=== PATIENT | female | born 1995 | race African-American/Black ===

== ENCOUNTER 2025-01-14 09:39 | Outpatient (CLI) | payer OTHER, SELFPAY ==
--- NOTE | ~2025-01-14 | MMUS_ITS ---
EXAMINATION: MM diagnostic favio BI w zainab, US breast RT limited INDICATION: 29-year old female; presents for evaluation of palpable lump in the lower inner right breast. COMPARISON: Baseline. TECHNIQUE: Digital breast tomosynthesis CC and MLO views of the BILATERAL breast and True lateral and spot compression of the RIGHT breast were obtained with computer-aided detection to assist in interpretation of the study. A radiopaque skin marker was placed over the area of RIGHT breast palpable lump. FINDINGS: The breasts are extremely dense, which lowers the sensitivity of mammography. There are no suspicious masses, calcifications, architectural distortion or any other abnormality in either breast. No suspicious mammographic abnormality correlates to the radiopaque skin marker. An asymmetry seen in the subareolar location in the left breast effaces on spot compression views compatible with superimposition of fibroglandular tissue. RIGHT BREAST ULTRASOUND FINDINGS: There is sonographic abnormality that correlates to the area of palpable lump identified by the patient. . IMPRESSION: 1. NO MAMMOGRAPHIC OR SONOGRAPHIC FINDING CORRELATES TO THE PALPABLE LUMP IN THE RIGHT BREAST. 2. NO MAMMOGRAPHIC EVIDENCE OF MALIGNANCY IN THE LEFT BREAST. RECOMMENDATION: CLINICAL MANAGEMENT OF PATIENT'S PALPABLE LUMP. BI-RADS 1, NEGATIVE Reviewed, dictated and finalized at location B. 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 NO MAMMOGRAPHIC OR SONOGRAPHIC FINDING CORRELATES TO THE PALPABLE LUMP IN TH E RIGHT BREAST. 2. NO MAMMOGRAPHIC EVIDENCE OF MALIGNANCY IN THE LEFT BREAST. RECOMMENDATION: CLINICAL MANAGEMENT OF PATIENT'S PALPABLE LUMP. BI-RADS 1, NEGATIVE
--- OUTSIDE RECORDS SUMMARY | 2025-01-14 11:12 | XMS_ITS | Data Portability ---
Author Organization [facility], ADMIN Address [address] [address] Assessment No assessment recorded. Plan of Treatment Reminders Order Date Submit Date Provider Last Modified By Organization Details Last Modified Time Details Appointments None recorded. Lab bacterial vaginosis and vaginitis rRNA panel, DNA probe, vaginal fluid 2022 023 [facility], [address] [place] [address], [id number], 3 14:09:47 cytology report, thin prep, smear or scraping, cervical or vaginal 2021 022 [facility], [address] [place] [address], [id number], 2 12:07:36 Referral None recorded. Procedures None recorded. Surgeries None recorded. Imaging None recorded. Medication Orders None recorded. Patient TargetsNo targets recorded. Patient Instructions Encounter Date Encounter Id Patient Instructions Last Modified By Organization Details Last Modified Time 09/08/2021 [id number] You may find the following electronic resources helpful. Contraception: https://www.[facility].org /womens-health/faqs/ -control Planning for : https://www.[facility].org /womens-health/faqs/ cogy-lgdvtp-jfmcuk-p regnancy-prepregnanc y-care Abnormal menstrual bleeding: https://www.[facility].org /womens-health/faqs/ jzpht-bluxjbxhq-mfzk ding STD screening and prevention: https://www.[facility].org /womens-health/faqs/ krs-xk-accfvnl-stis Not available 09/08/2021 13:35:19 Annual gynecolog ical exam performed. Exercise and well balanced diet encouraged. Multivitamin discussed. Reviewed screening for precancerous lesions of the cervix (Pap/HPV testing when appropriate). Discussed appropriate interval for screening and discussed role of HPV in cervical cancer. Monthly breast exams discussed. Counseling on methods of contraception provided. Discussed the use of combined hormonal contraception, including the risks and benefits of this contraceptive method. Discussed safe sex practices, barrier method, and emergency contraceptive options. Counseled regarding HPV vaccine. Advised avoidance of tobacco, alcohol, and drugs . Patient voiced understanding and all questions were addressed. Patient will come back in a year unless there are new symptoms or concerns. Not available 09/08/2021 13:35:26 11/12/2022 [id number] Cervical Cancer Screening: Women should begin having a Pap smear at age 21. Women aged 21-29 should be screened every 3 years. Women aged 30-65 should be screened every 3-5 years. Your doctor may stop performing pap smear screenings if you have had a hysterectomy or are age 65 or above, if you meet certain criteria: Three consecutive negative cytology results or two consecutive negative HPV results within the previous 10 years with the most recent test within the past 5 years. No history of a high-grade precancerous lesions (cervical intraepithelial neoplasia grade 2 or grade 3 or cervical cancer within the past 20 years). Screening for Sexually Transmitted Diseases: Chlamydia and Gonorrhea are two of the most common sexually transmitted diseases with 75% of Chlamydial and 68% of Gonococcal infections showing no symptoms. Women should be screened for Chlamydia and Gonorrhea that are age 25 and under or women over age 25 at increased or special risk. Women should be screened for HIV aged 13-64 or at increased risk. 84% of cases are attributed to heterosexual sex. Women at increased or special risk or requesting STI screening should be screened for Hepatitis B and C, Syphilis, Herpes, Trichomonas. Vaccination Recommendations for Ages 27-45: Screenings for vaccination status should be based on the CDC Adult Vaccine Schedule. Recommendations include seasonal flu vaccine, Hepatitis A&B, and the Varicella series for those who are unvaccinated and have no history of infection. Completion of the HPV vaccine can be considered if desired and you have not been previously vaccinated. All eligible women should receive full vaccination against COVID-19. If you are actively attempting , you should not receive live vaccines. Preconception Counseling: If you are of reproductive age who are actively planning or not preventing should have a visit to discuss their reproductive plan. The goals of this visit are to identify any risks or barriers to healthy outcomes and to receive education on possible options for health management to reduce any risks prior to becoming . Your provider will ask you about your health history in order to identify possible chronic medical conditions that should be optimized prior to for better outcomes and will make referrals if needed. Your provider will also review the medications that you are currently taking that may be harmful in and talk with you about any that may need to be stopped. Your provider will review your vaccination status with you to identify if there are any that may be recommended as well as discuss substance abuse and possible environmental exposures. Family history will be obtained to identify any potential inheritable conditions and refer you to a genetic counselor if necessary. Your provider will ask you to start taking a folic acid supplementation of 400-800mcg daily to prevent neural tube defects if there is a chance you may become . Hereditary Cancer Screening: Your provider will review your family history of any cancers in your first- and second-degree relatives if you know that information. A referral for genetic counseling may be made if your family history includes a diagnosis of cancer at a young age, multiple cancers of the same type in different family members of the same side, or multiple primary cancers in one individual, or multiple family members on the same side affected by a combination of breast, ovarian, endometrial, and/or gastrointestinal cancers. Genetic Testing for Inheritable Disorders (Carrier Screening): The [place] [employer] recommends that all women, and preferably all women with a desire to become , consider having a blood test to assess their risk of carrying a baby with a significant inherited disorder, such as cystic fibrosis. This test only needs to be performed once in a lifetime (assuming there are no improvements in testing in the future). A positive test indicates that there is a risk for the disease, however, a baby can only be affected with the disease if both parents carry the same gene. Therefore, the father of the baby would also need to be tested. [email or web address] Not available 11/12/2022 13:42:32 Reason for Referral None Reported. Results Created Date Observation Date Name Description Value Unit Range Abnormal Flag Note LastModifiedBy Organization Detail LastModifiedTime 09/09/19 22 09/11/2021 IGP, RFX APTIM A HPV ASCU diagnosis: Jackelien t CLAYTON KING FOR INTRA EPITH ELIAL LESIO N OR BRIDGETLEIGH RHODA . Not Available [facility] ([facility]) [address] [place], [address], 09/11/2021 12:07:35 09/09/19 22 09/11/2021 IGP, RFX APTIM A HPV ASCU specimen adequacy: Commmicky t Satis facto ry for evalu ation . Endoc ervic al and/o r squam ous metap lasti c cells (endo cervi anitra compo nent) are prese nt. Not Available [facility] ([facility]) [address] [place], [address], 09/11/2021 12:07:35 09/09/19 22 09/11/2021 IGP, RFX APTIM A HPV ASCU clinician provided ICD10: Jackeline barton Z01.4 19 Not Available [facility] ([facility]) [address] [place], [address], 09/11/2021 12:07:35 09/09/19 22 09/11/2021 IGP, RFX APTIM A HPV ASCU performed by: Brittany Morocho (ASCP ) Not Available [facility] ([facility] [address] [place], [address], 09/11/2021 12:07:35 09/09/19 22 09/11/2021 IGP, RFX APTIM A HPV ASCU . . Not Available [facility] ([facility] [address] [place], [address], 09/11/2021 12:07:35 09/09/19 22 09/11/2021 IGP, RFX APTIM A HPV ASCU note: Commen t The Pap smear is a scree kenn test desig abdullahi to aid in the detec tion of naren ligna nt and malig nant condi tions of the uteri ne cervi x. It is not a diagn ostic proce dure and shoul d not be used as the sole means of detec ting cervi anitra cance r. Both false -posi tive and false -nega tive repor ts do occur . Not Available [facility] ([facility]) [address] [place], [address], 09/11/2021 12:07:35 09/09/19 22 09/11/2021 IGP, RFX APTIM A HPV ASCU test methodology: Commen t This liqui d based ThinP rep(R ) pap test was scree abdullahi with the use of an image guide tara systhailey m. Not Available [facility] ([facility]) [address] [place], [address], 09/11/2021 12:07:35 09/09/19 22 09/11/2021 IGP, RFX APTIM A HPV ASCU . Commen t The HPV DNA refle x crite nehemias were not met with this speci men resul t there fore, no HPV testi ng was perfo rmed. Not Available [facility] ([facility] [address] [place], [address], 09/11/2021 12:07:35 11/13/19 23 11/13/2022 VAGIN ITIS/ VAGIN OSIS, DNA PROBE keysha species Negati ve negati ve Not Available [facility] ([facility] [address] [place], [address], 11/13/2022 14:09:47 11/13/19 23 11/13/2022 VAGIN ITIS/ VAGIN OSIS, DNA PROBE gardnerella vaginalis Positi ve negati ve abnormal Not Available [facility] ([facility] [address] [place], [address], 11/13/2022 14:09:47 11/13/19 23 11/13/2022 VAGIN ITIS/ VAGIN OSIS, DNA PROBE trichomonas vaginalis Negati ve negati ve Not Available [facility] ([facility]) [address] [facility], [place], [address], 11/13/2022 14:09:47 Result Notes None recorded. Procedures Surgical History Date Name Laterality Status Provider Name and Address Organization Details Recorded Time 3 [facility] Annual Well-Woman Visit age 18-39 EST [address] or NEW [address] completed [facility] 11/12/2022 13:42:32 2 Date of Last Pap Smear completed [facility] 11/12/2022 16:36:09 4 Colposcopy completed [facility] 09/08/2021 13:10:57 Imaging Results None recorded. Procedure Notes None recorded. Medical Equipment None Reported. Allergies Allergen ID Allergen Name Allergen Category Reaction Reaction Severity Criticality Documentation Date Start Date Code Code System Note Provider Name and Address Organization Details Recorded Time 64380 house dust allergeni c extract environme nt,medica tion Not available Not available Not available 09/08/2021 38277 9 RxNorm ANTON SAMANTA [facility] 2 12:59:25 52952 tree nut food Not available Not available Not available 09/08/2021 ANTON SAMANTA [facility] 2 12:59:25 Medications Name Sig Start Date Stop Date Status Note LastModified by Organization Details LastModified Time benzonatate 200 mg capsule TAKE 1 CAPSULE BY MOUTH EVERY 8 HOURS NEEDED active Not Available Not Available No t Available metronidazole 500 mg tablet TAKE 1 TABLET BY MOUTH EVERY 12 HOURS FOR 7 DAYS active Not Available Not Available No t Available amoxicillin 875 mg-potassium clavulanate 125 mg tablet TAKE 1 TABLET BY MOUTH TWICE DAILY active Not Available Not Available No t Available Vitals Date Recorded Body height Body mass index (BMI) Body weight Systolic And Diastolic Provider Name and Address Organization Details Last Updated DateTime 09/08/2021 162.56 cm 26.9 kg/m2 87191 g 112/70 mm[Hg] ANTON ENGLAND [facility] 09/08/2021 13:10:34 Date Recorded Body height Body mass index (BMI) Body weight Systolic And Diastolic Provider Name and Address Organization Details Last Updated DateTime 11/12/2022 162.56 cm 25.1 kg/m2 67691.49 g 114/70 mm[Hg] ANTON ENGLAND [facility] 11/12/2022 16:38:52 Social History Question Answer Notes LastModified by Organizat ion Details LastModified Time Tobacco Smoking Status Never Smoker ANTON ENGLAND [facility] 09/08/2021 12:59:59 Do You Have An Advance Directive? No Information not available 09/08/2021 How Many Years Have You Consumed Alcohol? 4 Information not available 09/08/2021 Is Blood Transfusion Acceptable In An Emergency? Yes Information not available 11/12/2022 What Is Your Level Of Caffeine Consumption? Moderate Information not available 09/08/2021 What Type Of Diet Are You Following? REGULAR Information not available 09/08/2021 Have There Been Any Changes To Your Family Or Social Situation? No Information no t available 11/12/2022 Domestic Violence No Informa tion not available 09/08/2021 History Of Domestic Violence No Information no t available 11/12/2022 What Was The Date Of Your Most Recent Tobacco Screening? 11/12/2022 Information not available 11/12/2022 Do You Use Protection During Sex? Usually Information not available 11/12/2022 What Is Your Relationship Status? Information not available 11/12/2022 Do You Use Your Seat Belt Or Car Seat Routinely? Yes Information not available 11/12/2022 Are You Sexually Active? Yes Information not available 11/12/2022 Are You Passively Exposed To Smoke? No Information no t available 11/12/2022 Has Tobacco Cessation Counseling Been Provided? No Information not available 11/12/2022 Are You Currently In School? No Information not available 11/12/2022 Sex: Female Functional Status Question Answer Note LastModified by Organizat ion Details LastModified Time Do you use any illicit or recreational drugs? No Information not available 11/12/2022 Do you or have you ever used any other forms of tobacco or nicotine? No Information not available 11/12/2022 What is your level of alcohol consumption? Occasional Information not available 09/08/2021 Are you currently employed? Yes Information not available 11/12/2022 What is your exercise level? Occasional Information not available 11/12/2022 Mental Status None recorded. Family History Relationship Description Onset Age of this Age Resolved Age Notes LastModified by Organization Details LastModified Time Maternal Grandmother Myocardial infarction [email or web address] Not available 09/08 12:59:30 Sister Malignant neoplasm of breast [email or web address] Not available 2021 12:59:30 Sister Asthma [email or web address] Not available 0 09/08/2021 12:59:30 Mother Myocardial infarction [email or web address] Not available 11/12 16:35:01 Medical History No medical history recorded. Gynecological History Statement/Question Response Flow Moderate History of Fibroids N Date of LMP 11/03/2022 Current Control Method: Withdrawal Yes History of Recurrent Ovarian Cysts N 13 Abnormal Pap Y History of PCOS N History of Infertility N On BCP's at Conception? N History of Cervical Dysplasia N History of Vulvar Dysplasia N Colposcopy 02/25/2013 Y Duration of Flow (days) 4 days Current Control Method Condoms Age at Menarche 11 History of Endometriosis N Frequency of Cycle (Q days) Every month Sexually Active? Y History of Abnormal PAP N History of Dysmenorrhea N Menses Monthly Y Date of Last Pap Smear 09/08/2021 Sexual Problems? N History of Sexually Transmitted Infectio n Y N Obstetrics History GPAL:G 0 P 0 0 0 0 Type Value Full Term 0 Living 0 Total 0 Past Encounters Encounter ID Performer Location Encounter Start Date Encounter Closed Date Diagnosis/Indication Diagnosis SNOMED-CT Code Diagnosis ICD10 Code Diagnosis IMO Codes Diagnosis Note [id number] Leah Ferrari MD [address] [place] [address] 09/08/2021 12:57:15 09/08/2021 13:37:42 Gynecologic examination 88296083 Z01.117 [id number] Leah Ferrari MD [place] [address] [facility] [address] [place] [address] 11/12/2022 16:31:34 11/12/2022 17:25:28 Gynecologic examination 02454586 Z01.419 Screening for malignant neoplasm of cervix 848405427 Z12.4 Vulvovaginitis 87648199 N76.0 Vaginitis swab drawn today to r/o infection. Discussed vulvar hygiene, sitz baths, and steroid cream for symptom relief. 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 For urinary symptoms, patient reportsno hematuriaandno incontinence. For vulvar complaints, patient reportsnone. For vaginal complaints, patient reportsnone. For gastrointestinal symptoms, patient reportsno gastrointestinal symptoms.Breast symptomsFor breast, patient reportsno breast pain,no breast lump, andno nipple discharge.ContraceptionFor current contraception, patient reportsmonogamous relationshipandcondoms (sometimes).Endocrine symptomsFor sexual complaints, patient reportsno sexual complaints,no pain during intercourse/sexual function, andnormal libido. For menopausal symptoms, patient reportsno menopausal symptomsandnormal vaginal lubrication.Psychological symptomsFor psychological symptoms, patient reportsno depression,no anxiety, andno pmdd.Preventative measuresFor preventive measures, patient reportsencourage self breast examination,encourage regular exercise,encourage no tobacco use, andfollowed with q3 year pap smear and high risk hpv typing. Air Brake Man offered per [facility] policy. Air Brake Man was DECLINEDMarried. No control. 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 For urinary symptoms, patient reportsno hematuriaandno incontinence. For vulvar complaints, patient reportsnone. For vaginal complaints, patient reportsnone. For gastrointestinal symptoms, patient reportsno gastrointestinal symptoms.Breast symptomsFor breast, patient reportsno breast pain,no breast lump, andno nipple discharge.Endocrine symptomsFor sexual complaints, patient reportsno sexual complaints,no pain during intercourse/sexual function, andnormal libido. For menopausal symptoms, patient reportsno menopausal symptomsandnormal vaginal lubrication.Psychological symptomsFor psychological symptoms, patient reportsno depression,no anxiety, andno pmdd.Preventative measuresFor preventive measures, patient reportsencourage self breast examination,encourage regular exercise,encourage no tobacco use, andfollowed with q3 year pap smear and high risk hpv typing. Air Brake Man offered per [facility] policy. Air Brake Man was DECLINEDPatient with complaints of vaginal itching and discharge about 2 weeks ago.Otherwise, no changes to medical history. Leah Ferrari MD [address] [facility] [address], [place], [address], [facility] 11/12/2022 21:37:18 OBGyn Episode No OBEpisode recorded.
== END 2025-01-14 09:40 | disposition home or self-care (01) ==
PROVIDERS: PCP Nurse Practitioner; Visit Provider Surgery
DX: N63.14 Unspecified lump in the right breast, lower inner quadrant (principal); N63.13 Unspecified lump in the right breast, lower outer quadrant
CPT/HCPCS: 76642; 77062; 77066; G0279